=== PATIENT | male | born 1970 | race African-American/Black ===

== ENCOUNTER 2019-04-30 15:49 | Inpatient (IN) | payer OTHER ==
[2019-04-30 16:19] VITALS: BMI 34.2
--- NOTE | 2019-04-30 17:45 | HP ---
COWS - Scale Resting Pulse: 1= [place] 81-100 Sweatin= Chills/Flushing Restless Observation: 1= Difficult to Sit Still Pupil Size: 1= Pupils >than Normal Bone or Joint Aches: 2= Severe Diffuse Aches Runny Nose/ Eye Tearin= Runny Nose/Eyes GI Upset > 30mins: 2= Nausea/Diarrhea Tremor Observation: 2= Slight Tremor Visible Yawning Observation: 2= >3x During Session Anxiety or Irritability: 2=Irritable/Anxious Goose Flesh Skin: 0=Smooth Skin COWS Score: 16 CIWA Score Nausea/Vomitin Muscle Tremors: 2 Anxiety: 3 Agitation: 2 Paroxysmal Sweats: 1-Minimal Palms Moist Orientation: 0-Oriented Tacttile Disturbances: 1-Very Mild Itch/Numbness Auditory Disturbances: 0-None Visual Disturbances: 0-None Headache: 2-Mild CIWA-Ar Total Score: 13 - Admission Criteria OASAS Guidelines: Admission for Medically Managed Detox: Requires at least one of the followin. CIWA greater than 12 2. Seizures within the past 24 hours 3. Delirium tremens within the past 24 hours 4. Hallucinations within the past 24 hours 5. Acute intervention needed for co occurring medical disorder 6. Acute intervention needed for co occurring psychiatric disorder 7. Severe withdrawal that cannot be handled at a lower level of care (continued vomiting, continued diarrhea, abnormal vital signs) requiring intravenous medication and/or fluids 8. Admitting History and Physical - Admission Chief Complaint: i need help to stop using heroin and alcohol History of Present Illness: this 48 years old male with heroin,alcohol dependence,seeking detox,withdrawal symptom, seeking detox last detox 2017 no smoking for inpatient detox History Source: Patient Limitations to Obtaining History: No Limitations - Past Medical History Additional Past Medical History: hyperlipidemia - Smoking History Smoking history: Never smoked - Alcohol/Substance Use Hx Alcohol Use: Yes History of Substance Use: reports: Cocaine, Heroin - Social History Usual Living Arrangement: Yes: Other Occupation: unemployed Other Social History: this 48years old mal with heroin and alcohol dependence, withdrawal symptom,for detox,unemployed Admission ROS S - HPI Chief Complaint: for inpatine detox heroin,cocaine and alcohol Allergies/Adverse Reactions: Allergies Allergy/AdvReac Type Severity Reaction Status Date / Time No Known Allergies Allergy Verified 04/30/19 16:14 History of Present Illness: this 48 years old male with heroin,alcohol,cocaine dependence,seeking help, first time to this facility for detox last detox 2017 [facility] not completed longest sobriety for 13 years Exam Limitations: No Limitations - Ebola screening Have you traveled outside of the country in the last 21 days: No Have you had contact with anyone from an Ebola affected area: No Do you have a fever: No - Review of Systems Constitutional: Chills, Loss of Appetite, Malaise, Night Sweats, Changes in sleep, Weakness EENT: reports: Nose Congestion Respiratory: reports: No Symptoms reported Cardiac: reports: No Symptoms Reported GI: reports: Diarrhea, Nausea, Abdominal cramping : reports: No Symptoms Reported Musculoskeletal: reports: Back Pain, Joint Pain, Muscle Pain Integumentary: reports: Dryness Neuro: reports: Headache, Tremors Endocrine: reports: No Symptoms Reported Hematology: reports: No Symptoms Reported Psychiatric: reports: No Sypmtoms Reported, Judgement Intact, Mood/Affect Appropiate, Orientated x3 Patient History - Patient Medical History Hx Anemia: No Hx Asthma: No Hx Chronic Obstructive Pulmonary Disease (COPD): No Hx Cancer: No Hx Cardiac Disorders: No Hx Congestive Heart Failure: No Hx Hypertension: No Hx Hypercholesterolemia: No Hx Pacemaker: No HX Cerebrovascular Accident: No Hx Seizures: No Hx Dementia: No Hx Diabetes: No Hx Gastrointestinal Disorders: No Hx Liver Disease: No Hx Genitourinary Disorders: No Hx Sexually Transmitted Disorders: No Hx Thyroid Disease: No Hx Human Immunodeficiency Virus (HIV): No (last 04/25 negative) Hx Hepatitis C: No Hx Depression: No Hx Suicide Attempt: No Hx Bipolar Disorder: No Hx Schizophrenia: No Other Medical History: no suicidal,no homicidal - Patient Surgical History Past Surgical History: No - PPD History Previous Implant?: Yes Documented Results: Negative w/o proof Implanted On Prior [facility] Admission?: No PPD to be Administered?: Yes - Smoking Cessation Smoking history: Never smoked - Substance & Tx. 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 Age of first use: 17 Date of last use: 04/30/19 Heroin Substance route: Inhalation Frequency: Daily Amount used: 10 bags Age of first use: 17 Date of last use: 04/30/19 Cocaine Substance route: Inhalation Frequency: 1-3 times last 30 days Amount used: 10$ Age of first use: 48 Date of last use: 04/28/19 Admission Physical Exam [facility] - Vital Signs Vital Signs: Vital Signs - 24 hr 04/30/19 04/30/19 16:05 17:00 Temperature 97.5 F L 97.5 F L Pulse Rate 86 86 Respiratory 18 18 Rate Blood Pressure 141/92 141/92 - Physical General Appearance: Yes: Moderate Distress, Tremorous, Irritable, Sweating, Anxious HEENTM: Yes: IRENE, Pharynx Normal Respiratory: Yes: Lungs Clear, Normal Breath Sounds, No Respiratory Distress Neck: Yes: Within Normal Limits, Supple, Trachea in good position Breast: Yes: Within Normal Limits Cardiology: Yes: Within Normal Limits, Regular Rhythm, Regular Rate, S1, S2 Abdominal: Yes: Within Normal Limits, Normal Bowel Sounds, Non Tender, Flat, Soft Genitourinary: Yes: Within Normal Limits Back: Yes: Normal Inspection, Muscle Spasm Musculoskeletal: Yes: Back pain, Muscle Pain Extremities: Yes: Tremors Neurological: Yes: 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 NML intact, Fully Oriented, Alert, Motor Strength 5/5 Integumentary: Yes: Dry Lymphatic: Yes: Within Normal Limits - Diagnostic (1) Opioid dependence with withdrawal Current Visit: Yes Status: Acute (2) Alcohol dependence with uncomplicated withdrawal Current Visit: Yes Status: Acute (3) Uncomplicated sedative, hypnotic or anxiolytic withdrawal Current Visit: Yes Status: Acute Cleared for Admission [facility] - Detox or Rehab [facility] Level of Care: Medically Managed Detox Regimen/Protocol: Methadone/Librium Breathalyzer - Breathalyzer Breathalyzer: 0 Urine Drug Screen - Test Device Lot number: [id number] Expiration date: 12/05/20 - Control Is test valid?: Yes - Results Drug screen NEGATIVE: No Urine drug screen results: CHRISTIE-Cocaine, FEN-Fentanyl, MOP-Opiates, MTD-Methadone Inpatient Rehab Admission - Rehab Decision to Admit Inpatient rehab admission?: No
[2019-04-30] MEDS ORDERED: ACETAMINOPHEN 325 MG TABLET (FP) PO PRN ×2 (18:05)
[2019-04-30] MEDS ORDERED: MAGNESIUM HYDROX 2400MG/30ML ORAL SUSPENSION 30 ML CUP PO PRN (18:05)
[2019-04-30] MEDS ORDERED: chlordiazePOXIDE HCL 25 MG CAPSULE PO PRN (18:05)
[2019-04-30] MEDS ORDERED: MAGNESIUM CITRATE 300 ML BOTTLE PO PRN (18:05)
[2019-04-30] MEDS ORDERED: MAG HYDROX/AL HYDROX/SIMETH 30 ML UNIT-DOSE CUP PO PRN (18:05)
[2019-04-30] MEDS ORDERED: hydrOXYzine PAMOATE 25 MG CAPSULE (FP) PO PRN (18:05)
[2019-04-30] MEDS ORDERED: MENTHOL/PHENOL 1 EACH UD MM PRN (18:05)
[2019-04-30] MEDS ORDERED: IBUPROFEN 400 MG TABLET (FP) PO PRN (18:05)
[2019-04-30] MEDS ORDERED: MELATONIN 5 MG TABLETS PO PRN (18:05)
[2019-04-30] MEDS ORDERED: BISMUTH SUBSALICYLATE 524 MG/30 ML UD PO PRN (18:05)
[2019-04-30] MEDS ORDERED: METHOCARBAMOL 500 MG TABLET PO PRN (18:05)
[2019-04-30] MEDS ORDERED: METHADONE HCL 10 MG TABLET (FOR DETOX USE ONLY) PO ONE (19:00)
[2019-04-30] MEDS: cloNIDine HCL 0.1 MG TABLET PO PRN (22:55)
[2019-04-30] MEDS: chlordiazePOXIDE HCL 25 MG CAPSULE PO SCH (22:56)
[2019-04-30] MEDS: THIAMINE HCL 100 MG TABLET (FP) PO SCH (22:56)
[2019-05-01] MEDS: chlordiazePOXIDE HCL 25 MG CAPSULE PO SCH ×4 (07:32→22:50)
[2019-05-01] MEDS ORDERED: METHADONE HCL 10 MG TABLET (FOR DETOX USE ONLY) ONE (09:53)
[2019-05-01] MEDS ORDERED: METHADONE HCL 5 MG TABLET (FOR DETOX USE ONLY) ONE (09:53)
[2019-05-01] MEDS ORDERED: METHADONE (DETOX) 20 MG, METHADONE (DETOX) 5 MG PO ONE (10:00)
[2019-05-01] MEDS: PRENATAL VITAMINS W/ FOLIC ACID TABLET (FP) PO SCH (10:14)
[2019-05-01 11:02] LABS: ALBUMIN 3.9 g/dl (3.4-5.0); BILIRUBIN,TOTAL 0.2 mg/dL (0.2-1); BLOOD UREA NITROGEN 14.7 mg/dL (7-18); CALCIUM 9.1 mg/dL (8.5-10.1); POTASSIUM 4.3 mmol/L (3.5-5.1); TOT PROT 7.8 g/dl (6.4-8.2)
[2019-05-01 11:08] LABS: HEMATOCRIT 41.3 % (35.4-49); HEMOGLOBIN 13.2 GM/dL (11.7-16.9); MCH 29.1 pg (25.7-33.7); MCHC 32.1 g/dl (32.0-35.9); MEAN CELL VOLUME 90.9 fl (80-96); MEAN PLT VOLUME 9.6 fl (7.5-11.1); PLATELET COUNT 289 K/MM3 (134-434); RBC 4.54 M/mm3 (4.00-5.60); RDW 15.3 % (11.9-15.9); WHITE BLOOD COUNT 6.7 K/mm3 (4.0-10.0)
--- NOTE | 2019-05-01 11:43 | PN ---
[facility] CIWA - CIWA Score Nausea/Vomitin-No Nausea/No Vomiting Muscle Tremors: 3 Anxiety: 3 Agitation: 3 Paroxysmal Sweats: 2 Orientation: 0-Oriented Tacttile Disturbances: 0-None Auditory Disturbances: 0-None Visual Disturbances: 0-None Headache: 0-None Present CIWA-Ar Total Score: 11 S COWS - Scale Resting Pulse: 0= [place] 80 or Below Sweatin= Chills/Flushing Restless Observation: 1= Difficult to Sit Still Pupil Size: 0= Normal to Room Light Bone or Joint Aches: 1= Mild Discomfort Runny Nose/ Eye Tearin= Nasal Congestion GI Upset > 30mins: 0= None Tremor Observation of Outstretched Hands: 1= Tremor [place], Not Seen Yawning Observation: 1= 1-2x During Session Anxiety or Irritability: 1=Feels Anxious/Irritable Goose Flesh Skin: 0=Smooth Skin COWS Score: 7 [facility] Progress Note (SOAP) Subjective: sweats irritable body aches agitation interrupted sleep Objective: 05/01/19 11:31 Vital Signs Temperature 97.9 F 05/01/19 09:20 Pulse Rate 77 05/01/19 09:20 Respiratory Rate 18 05/01/19 09:20 Blood Pressure 121/66 05/01/19 09:20 O2 Sat by Pulse Oximetry (%) Laboratory Tests 05/01/19 05/01/19 07:50 07:50 WBC 6.7 RBC 4.54 Hgb 13.2 Hct 41.3 MCV 90.9 MCH 29.1 MCHC 32.1 RDW 15.3 Plt Count 289 MPV 9.6 Sodium 141 Potassium 4.3 Chloride 110 H Carbon Dioxide 27 Anion Gap 4 L BUN 14.7 Creatinine 1.0 Est GFR (CKD-EPI)AfAm 102.69 Est GFR (CKD-EPI)NonAf 88.61 Random Glucose 97 Calcium 9.1 Total Bilirubin 0.2 AST 18 ALT 27 Alkaline Phosphatase 118 H Total Protein 7.8 Albumin 3.9 aaox3 ambulating no acute distress Assessment: 05/01/19 11:32 withdrawals Plan: continue detox increase fluids
[2019-05-01 15:04] LABS: URINE APPEARANCE CLEAR; URINE BILIRUBIN NEGATIVE (NEGATIVE); URINE COLOR YELLOW; URINE GLUCOSE (UA) NEGATIVE (NEGATIVE); URINE KETONE NEGATIVE (NEGATIVE); URINE LEUK ESTERASE NEGATIVE (NEGATIVE); URINE NITRITE NEGATIVE (NEGATIVE); URINE PROTEIN NEGATIVE (NEGATIVE); URINE UROBILINOGEN 0.2 mg/dL (0.2-1.0)
[2019-05-01] MEDS: THIAMINE HCL 100 MG TABLET (FP) PO SCH (23:59)
[2019-05-02] MEDS: chlordiazePOXIDE HCL 25 MG CAPSULE PO SCH ×4 (06:45→23:29)
[2019-05-02] MEDS ORDERED: METHADONE HCL 10 MG TABLET (FOR DETOX USE ONLY) PO ONE (10:00)
[2019-05-02] MEDS: PRENATAL VITAMINS W/ FOLIC ACID TABLET (FP) PO SCH (10:48)
--- NOTE | 2019-05-02 11:30 | PN ---
[facility] CIWA - CIWA Score Nausea/Vomitin-Mild Nausea/No Vomiting Muscle Tremors: 2 Anxiety: 2 Agitation: 2 Paroxysmal Sweats: 2 Orientation: 0-Oriented Tacttile Disturbances: 0-None Auditory Disturbances: 0-None Visual Disturbances: 0-None Headache: 0-None Present CIWA-Ar Total Score: 9 [facility] COWS - Scale Resting Pulse: 0= [place] 80 or Below Sweatin= Chills/Flushing Restless Observation: 0= Sits Still Pupil Size: 0= Normal to Room Light Bone or Joint Aches: 1= Mild Discomfort Runny Nose/ Eye Tearin= None GI Upset > 30mins: 2= Nausea/Diarrhea Tremor Observation of Outstretched Hands: 1= Tremor [place], Not Seen Yawning Observation: 1= 1-2x During Session Anxiety or Irritability: 2=Irritable/Anxious Goose Flesh Skin: 0=Smooth Skin COWS Score: 8 S Progress Note (SOAP) Subjective: nausea sweats mild shakes interrupted sleep body aches Objective: 05/02/19 11:30 Vital Signs Temperature 98.1 F 05/02/19 09:16 Pulse Rate 62 05/02/19 09:16 Respiratory Rate 16 05/02/19 09:16 Blood Pressure 138/88 05/02/19 09:16 O2 Sat by Pulse Oximetry (%) Laboratory Tests 05/01/19 05/01/19 05/01/19 07:50 07:50 07:50 WBC 6.7 RBC 4.54 Hgb 13.2 Hct 41.3 MCV 90.9 MCH 29.1 MCHC 32.1 RDW 15.3 Plt Count 289 MPV 9.6 Sodium 141 Potassium 4.3 Chloride 110 H Carbon Dioxide 27 Anion Gap 4 L BUN 14.7 Creatinine 1.0 Est GFR (CKD-EPI)AfAm 102.69 Est GFR (CKD-EPI)NonAf 88.61 Random Glucose 97 Calcium 9.1 Total Bilirubin 0.2 AST 18 ALT 27 Alkaline Phosphatase 118 H Total Protein 7.8 Albumin 3.9 Urine Color Urine Appearance Urine pH Ur Specific [place] Urine Protein Urine Glucose (UA) Urine Ketones Urine Blood Urine Nitrite Urine Bilirubin Urine Urobilinogen Ur Leukocyte Esterase RPR Titer Nonreactive 05/01/19 11:35 WBC RBC Hgb Hct MCV MCH MCHC RDW Plt Count MPV Sodium Potassium Chloride Carbon Dioxide Anion Gap BUN Creatinine Est GFR (CKD-EPI)AfAm Est GFR (CKD-EPI)NonAf Random Glucose Calcium Total Bilirubin AST ALT Alkaline Phosphatase Total Protein Albumin Urine Color Yellow Urine Appearance Clear Urine pH 8.0 Ur Specific [place] 1.021 Urine Protein Negative Urine Glucose (UA) Negative Urine Ketones Negative Urine Blood Negative Urine Nitrite Negative Urine Bilirubin Negative Urine Urobilinogen 0.2 Ur Leukocyte Esterase Negative RPR Titer aaox3 ambulating no acute distress Assessment: 05/02/19 11:31 withdrawals sx Plan: continue detox
[2019-05-02] MEDS: cloNIDine HCL 0.1 MG TABLET PO PRN (16:59)
[2019-05-02] MEDS: THIAMINE HCL 100 MG TABLET (FP) PO SCH (23:29)
[2019-05-03] MEDS ORDERED: chlordiazePOXIDE HCL 10 MG CAPSULE PO PRN
[2019-05-03] MEDS ORDERED: chlordiazePOXIDE HCL 10 MG CAPSULE PO SCH (05:00)
[2019-05-03] MEDS ORDERED: METHADONE HCL 10 MG TABLET (FOR DETOX USE ONLY) ONE (08:43)
[2019-05-03] MEDS ORDERED: METHADONE HCL 5 MG TABLET (FOR DETOX USE ONLY) ONE (08:43)
[2019-05-03] MEDS ORDERED: METHADONE HCL 10 MG TABLET (FOR DETOX USE ONLY) PO ONE (10:00)
[2019-05-03] MEDS ORDERED: METHADONE (DETOX) 10 MG, METHADONE (DETOX) 5 MG PO ONE (10:00)
[2019-05-03] MEDS: chlordiazePOXIDE HCL 10 MG CAPSULE PO SCH ×2 (10:09→21:05)
[2019-05-03] MEDS: PRENATAL VITAMINS W/ FOLIC ACID TABLET (FP) PO SCH (10:10)
--- NOTE | 2019-05-03 11:23 | PN ---
S CIWA - CIWA Score Nausea/Vomitin-No Nausea/No Vomiting Muscle Tremors: 1-None Visible, but [place] Anxiety: 1-Mildly Anxious Agitation: 1-Slight > Activity Paroxysmal Sweats: 1-Minimal Palms Moist Orientation: 0-Oriented Tacttile Disturbances: 0-None Auditory Disturbances: 0-None Visual Disturbances: 0-None Headache: 0-None Present CIWA-Ar Total Score: 4 S COWS - Scale Resting Pulse: 0= [place] 80 or Below Sweatin= Chills/Flushing Restless Observation: 1= Difficult to Sit Still Pupil Size: 0= Normal to Room Light Bone or Joint Aches: 0= None Runny Nose/ Eye Tearin= Nasal Congestion GI Upset > 30mins: 0= None Tremor Observation of Outstretched Hands: 1= Tremor [place], Not Seen Yawning Observation: 0= None Anxiety or Irritability: 1=Feels Anxious/Irritable Goose Flesh Skin: 0=Smooth Skin COWS Score: 5 S Progress Note (SOAP) Subjective: sweats body aches I need my methadone lowered, I feel better. Objective: 05/03/19 11:22 Vital Signs Temperature 97.3 F L 05/03/19 09:21 Pulse Rate 66 05/03/19 09:21 Respiratory Rate 18 05/03/19 09:21 Blood Pressure 145/80 05/03/19 09:21 O2 Sat by Pulse Oximetry (%) Laboratory Tests 05/01/19 05/01/19 05/01/19 07:50 07:50 07:50 WBC 6.7 RBC 4.54 Hgb 13.2 Hct 41.3 MCV 90.9 MCH 29.1 MCHC 32.1 RDW 15.3 Plt Count 289 MPV 9.6 Sodium 141 Potassium 4.3 Chloride 110 H Carbon Dioxide 27 Anion Gap 4 L BUN 14.7 Creatinine 1.0 Est GFR (CKD-EPI)AfAm 102.69 Est GFR (CKD-EPI)NonAf 88.61 Random Glucose 97 Calcium 9.1 Total Bilirubin 0.2 AST 18 ALT 27 Alkaline Phosphatase 118 H Total Protein 7.8 Albumin 3.9 Urine Color Urine Appearance Urine pH Ur Specific [place] Urine Protein Urine Glucose (UA) Urine Ketones Urine Blood Urine Nitrite Urine Bilirubin Urine Urobilinogen Ur Leukocyte Esterase RPR Titer Nonreactive 05/01/19 11:35 WBC RBC Hgb Hct MCV MCH MCHC RDW Plt Count MPV Sodium Potassium Chloride Carbon Dioxide Anion Gap BUN Creatinine Est GFR (CKD-EPI)AfAm Est GFR (CKD-EPI)NonAf Random Glucose Calcium Total Bilirubin AST ALT Alkaline Phosphatase Total Protein Albumin Urine Color Yellow Urine Appearance Clear Urine pH 8.0 Ur Specific [place] 1.021 Urine Protein Negative Urine Glucose (UA) Negative Urine Ketones Negative Urine Blood Negative Urine Nitrite Negative Urine Bilirubin Negative Urine Urobilinogen 0.2 Ur Leukocyte Esterase Negative RPR Titer aaox3 ambulating no acute distress Assessment: 05/03/19 11:23 withdrawals Plan: continue detox increase fluids
--- NOTE | 2019-05-03 13:34 | EKG ---
Test Reason : Blood Pressure : / mmHG Vent. Rate : 070 BPM Atrial Rate : 070 BPM P-R Int : 146 ms QRS Dur : 096 ms QT Int : 398 ms P-R-T Axes : 041 030 024 degrees QTc Int : 429 ms NORMAL SINUS RHYTHM NON-SPECIFIC INTRA-VENTRICULAR CONDUCTION DELAY NO PREVIOUS ECGS AVAILABLE Confirmed by ALONSO OLEARY MD ([id number]) on 05/03/2019 1:34:16 PM Referred By: JOSE Confirmed By:ALONSO OLEARY MD
[2019-05-03] MEDS: THIAMINE HCL 100 MG TABLET (FP) PO SCH (21:05)
[2019-05-04] MEDS ORDERED: chlordiazePOXIDE HCL 10 MG CAPSULE PO ONE (05:00)
[2019-05-04] MEDS ORDERED: chlordiazePOXIDE HCL 10 MG CAPSULE PO SCH (05:00)
[2019-05-04] MEDS ORDERED: METHADONE HCL 5 MG TABLET (FOR DETOX USE ONLY) PO ONE (06:00)
[2019-05-04 06:19] VITALS: BP 127/76; PULSE 66; TEMP 97.5
[2019-05-04] MEDS ORDERED: METHADONE HCL 10 MG TABLET (FOR DETOX USE ONLY) PO ONE (10:00)
[2019-05-04] MEDS: PRENATAL VITAMINS W/ FOLIC ACID TABLET (FP) PO SCH (10:39)
--- NOTE | 2019-05-04 18:39 | DS ---
[facility] Detox Discharge Summary Admission Date: 04/30/19 Discharge Date: 05/04/19 - History Present History: Alcohol Dependence, Opioid Dependence, Sedative Dependence Additional Comments: PATIENT GOING TO [facility] ([place], [place] ) FOR AFTERCARE. PATIENT WAS DISCHARGED FROM DETOX UNIT IN STABLE MEDICAL CONDITION. - Physical Exam Results Vital Signs: Vital Signs Temperature 97.5 F L 05/04/19 06:18 Pulse Rate 66 05/04/19 06:18 Respiratory Rate 20 05/04/19 06:18 Blood Pressure 127/76 05/04/19 06:18 O2 Sat by Pulse Oximetry (%) Pertinent Admission Physical Exam Findings: WITHDRAWAL SYMPTOMS. Laboratory Tests 05/01/19 05/01/19 05/01/19 07:50 07:50 07:50 WBC 6.7 RBC 4.54 Hgb 13.2 Hct 41.3 MCV 90.9 MCH 29.1 MCHC 32.1 RDW 15.3 Plt Count 289 MPV 9.6 Sodium 141 Potassium 4.3 Chloride 110 H Carbon Dioxide 27 Anion Gap 4 L BUN 14.7 Creatinine 1.0 Est GFR (CKD-EPI)AfAm 102.69 Est GFR (CKD-EPI)NonAf 88.61 Random Glucose 97 Calcium 9.1 Total Bilirubin 0.2 AST 18 ALT 27 Alkaline Phosphatase 118 H Total Protein 7.8 Albumin 3.9 Urine Color Urine Appearance Urine pH Ur Specific [place] Urine Protein Urine Glucose (UA) Urine Ketones Urine Blood Urine Nitrite Urine Bilirubin Urine Urobilinogen Ur Leukocyte Esterase RPR Titer Nonreactive 05/01/19 11:35 WBC RBC Hgb Hct MCV MCH MCHC RDW Plt Count MPV Sodium Potassium Chloride Carbon Dioxide Anion Gap BUN Creatinine Est GFR (CKD-EPI)AfAm Est GFR (CKD-EPI)NonAf Random Glucose Calcium Total Bilirubin AST ALT Alkaline Phosphatase Total Protein Albumin Urine Color Yellow Urine Appearance Clear Urine pH 8.0 Ur Specific [place] 1.021 Urine Protein Negative Urine Glucose (UA) Negative Urine Ketones Negative Urine Blood Negative Urine Nitrite Negative Urine Bilirubin Negative Urine Urobilinogen 0.2 Ur Leukocyte Esterase Negative RPR Titer LABS NOTED. - Treatment Hospital Course: Detox Protocol Followed, Detoxed Safely, Responded well, Discharged Condition Good Patient has Accepted a Rehab Referral to: PT. REFERRED TO [facility] ([place], [place]) - Medication Discharge Medications: Ambulatory Orders NK [No Known Home Medication] 04/30/19 - Diagnosis (1) Alcohol dependence with uncomplicated withdrawal Status: Acute (2) Opioid dependence with withdrawal Status: Acute (3) Uncomplicated sedative, hypnotic or anxiolytic withdrawal Status: Acute - AMA Did Patient Leave Against Medical Advice: No
[2019-05-05] MEDS ORDERED: chlordiazePOXIDE HCL 10 MG CAPSULE PO ONE (05:00)
[2019-05-05] MEDS ORDERED: METHADONE HCL 5 MG TABLET (FOR DETOX USE ONLY) PO ONE (06:00)
== END 2019-05-04 09:25 | disposition home or self-care (01) | DRG 773 ==
LOC: YASAS 15:49 → Y6N 18:28
PROVIDERS: ADMIT Allergy & Immunology; ATTEND Allergy & Immunology
PROC: HZ2ZZZZ Detoxification Services for Substance Abuse Treatment (ICD-10-PCS; principal; 2019-04-30)
DX: F11.23 Opioid dependence with withdrawal (principal); F10.230 Alcohol dependence with withdrawal, uncomplicated; F13.230 Sedative, hypnotic or anxiolytic dependence with withdrawal, uncomplicated
CPT/HCPCS: 36415; 80053; 81003; 85027; 86593; 93005; 93010; J0735

== ENCOUNTER 2019-05-31 16:15 | Inpatient (IN) | payer OTHER ==
[2019-05-31 17:03] VITALS: BMI 34.2
--- NOTE | 2019-05-31 20:09 | HP ---
COWS - Scale Resting Pulse: 1= CO 81-100 Sweatin=Flushed/Facial Moisture Restless Observation: 3= Extraneous Movement Pupil Size: 2= Moderately Dilated (Pupils = 4 mm) Bone or Joint Aches: 0= None Runny Nose/ Eye Tearin= Nasal Congestion GI Upset > 30mins: 1= Stomach Cramp Tremor Observation: 2= Slight Tremor Visible Yawning Observation: 0= None Anxiety or Irritability: 1=Feels Anxious/Irritable Goose Flesh Skin: 0=Smooth Skin COWS Score: 13 CIWA Score Nausea/Vomitin-No Nausea/No Vomiting Muscle Tremors: 3 Anxiety: 1-Mildly Anxious Agitation: 1-Slight > Activity Paroxysmal Sweats: 3 (Increased facial moisture) Orientation: 0-Oriented Tacttile Disturbances: 0-None Auditory Disturbances: 0-None Visual Disturbances: 0-None Headache: 0-None Present CIWA-Ar Total Score: 8 - Admission Criteria [facility]ASAS Guidelines: Admission for Medically Managed Detox: Requires at least one of the followin. CIWA greater than 12 2. Seizures within the past 24 hours 3. Delirium tremens within the past 24 hours 4. Hallucinations within the past 24 hours 5. Acute intervention needed for co occurring medical disorder 6. Acute intervention needed for co occurring psychiatric disorder 7. Severe withdrawal that cannot be handled at a lower level of care (continued vomiting, continued diarrhea, abnormal vital signs) requiring intravenous medication and/or fluids 8. Patient presents the following: None of the above Admission Criteria Met: Admission criteria not met Admitting History and Physical - Smoking History Smoking history: Never smoked Have you smoked in the past 12 months: No - Alcohol/Substance Use Hx Alcohol Use: Yes History of Substance Use: reports: Cocaine, Heroin - Social History Occupation: unemployed Admission [facility] Chief Complaint: " Here to get clean and change my life" Allergies/Adverse Reactions: Allergies Allergy/AdvReac Type Severity Reaction Status Date / Time No Known Allergies Allergy Verified 05/31/19 17:06 History of Present Illness: 48 yo presents w/ opioid withdrawal seeking detox. States was trying to stop on own by taking methadone. Last took methadone 2 days ago. PAMELLA: 0.009 UTox: + FEN/MTD/BZO Last [facility] detox 04/30/19. States relapsed 2 days after discharge. Denies seizures or overdoses. Alcohol use began at age 17. (Dibbing and dabbing) Consistent use at age 44. Currently drinks 6- 12 oz beers/day x 3 years. Last drink 1 -16 oz beer @ 3 pm today. Heroin use began at age 44. Currently using 6 bags/day. Nasal. Has a Narcan kit at home. Methadone use began 2 days ago - was trying to detox self. Thinks it was 30 mg. Nicotine - quit 1 month ago. Denies benzo use. PMHx: Denies Last EK04/30/19 MHHx: Denies depression. Denies thoughts of harming self or others SHx: Domiciled. Self-employed. Denies legal issues. Search Terms: Cruzito Summersley, 1970 Search Date: 05/31/2019 08:06:58 PM The Drug Utilization Report below displays all of the controlled substance prescriptions, if any, that your patient has filled in the last twelve months. The information displayed on this report is compiled from pharmacy submissions to the Department, and accurately reflects the information as submitted by the pharmacies. This report was requested by: Zenia Palmer | Reference #: [id number] There are no results for the search terms that you entered. Exam Limitations: No Limitations - Ebola screening Have you traveled outside of the country in the last 21 days: No (N) Have you had contact with anyone from an Ebola affected area: No Have you been sick,other than usual withdrawal symptoms: No Do you have a fever: No - Review of Systems Constitutional: No Symptoms Reported EENT: reports: No Symptoms Reported Respiratory: reports: No Symptoms reported Cardiac: reports: No Symptoms Reported GI: reports: Indigestion (Acid reflux - takes mylanta), Abdominal cramping Musculoskeletal: reports: No Symptoms Reported Integumentary: reports: No Symptoms Reported Neuro: reports: Tremors Endocrine: reports: No Symptoms Reported Hematology: reports: No Symptoms Reported Psychiatric: reports: Judgement Intact, Mood/Affect Appropiate, Orientated x3, Anxious Patient History - Patient Medical History Hx Anemia: No Hx Asthma: No Hx Chronic Obstructive Pulmonary Disease (COPD): No Hx Cancer: No Hx Cardiac Disorders: No Hx Congestive Heart Failure: No Hx Hypertension: No Hx Hypercholesterolemia: No Hx Pacemaker: No HX Cerebrovascular Accident: No Hx Seizures: No Hx Dementia: No Hx Diabetes: No Hx Gastrointestinal Disorders: No Hx Liver Disease: No Hx Genitourinary Disorders: No Hx Sexually Transmitted Disorders: No Hx Renal Disease (ESRD): No Hx Thyroid Disease: No Hx Human Immunodeficiency Virus (HIV): No (last 04/25 negative) Hx Hepatitis C: No Hx Depression: No Hx Suicide Attempt: No Hx Bipolar Disorder: No Hx Schizophrenia: No - Patient Surgical History Past Surgical History: No Hx Neurologic Surgery: No Hx Cataract Extraction: No Hx Cardiac Surgery: No Hx Lung Surgery: No Hx Breast Surgery: No Hx Breast Biopsy: No Hx Abdominal Surgery: No Hx Appendectomy: No Hx Cholecystectomy: No Hx Genitourinary Surgery: No Hx Section: No Hx Orthopedic Surgery: No Anesthesia Reaction: No - PPD History Previous Implant?: Yes Documented Results: Negative w/proof Implanted On Prior [facility] Admission?: Yes Date: 05/02/19 PPD to be Administered?: No - Smoking Cessation Smoking history: Former smoker (Stopped: 04/30/2019) Have you smoked in the past 12 months: Yes Hx Chewing Tobacco Use: No Initiated information on smoking cessation: Yes 'Breaking Loose' booklet given: 05/31/19 - Substance & Tx. History Hx Alcohol Use: Yes Hx Substance Use: Yes Substance Use Type: Alcohol, Heroin Hx Substance Use Treatment: Yes (detox) - Substances abused Alcohol Substance route: Oral Frequency: Daily Amount used: 1 liter of vodka Age of first use: 17 Date of last use: 05/31/19 Heroin Substance route: Inhalation Frequency: Daily Amount used: 5bags Age of first use: 44 Date of last use: 05/31/19 Admission Physical Exam BHS - Vital Signs Vital Signs: Vital Signs - 24 hr 05/31/19 16:55 Temperature 97.9 F Pulse Rate 83 Respiratory 16 Rate Blood Pressure 155/95 - Physical General Appearance: Yes: Mild Distress, Obese, Tremorous (Mild tremors), Anxious HEENTM: Yes: EOMI, Hearing grossly Normal, Normocephalic, Normal Voice, IRENE ( Pupils = 4 mm), Nasal Congestion, Other (Thickened saliva) Respiratory: Yes: Lungs Clear (Pulse Ox = 98 &), Normal Breath Sounds, No Respiratory Distress Neck: Yes: No masses,lesions,Nodules, Supple Cardiology: Yes: Regular Rhythm, Regular Rate, S1, S2 Abdominal: Yes: Normal Bowel Sounds, Non Tender, Soft, Protuberent (Increased abdominal adiposity) Genitourinary: Yes: Within Normal Limits Back: Yes: Normal Inspection Musculoskeletal: Yes: full range of Motion, Gait Steady Extremities: Yes: Normal Capillary Refill, Normal Range of Motion, Tremors (Mild ) Neurological: Yes: 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 NML intact, Fully Oriented, Alert, Motor Strength 5/5, Normal Mood/Affect, Normal Response Integumentary: Yes: Normal Color, Warm, Moist (Increased facial mositure.), Other (Decreased skin turgor) - Diagnostic (1) Dehydration Current Visit: Yes Status: Acute (2) Obesity (BMI 30.0-34.9) Current Visit: Yes Status: Chronic (3) Opioid dependence with withdrawal Current Visit: Yes Status: Acute (4) Alcohol dependence, uncomplicated Current Visit: Yes Status: Chronic Cleared for Admission [facility] - Detox or Rehab [facility] Level of Care: Medically Managed Detox Regimen/Protocol: Methadone Claeared for Rehab Admission: No Breathalyzer - Breathalyzer Breathalyzer: 0.009 Urine Drug Screen - Test Device Lot number: [id number] Expiration date: 12/05/20 - Control Is test valid?: Yes - Results Drug screen NEGATIVE: No Urine drug screen results: FEN-Fentanyl, MTD-Methadone, BZO-Benzodiazepines Inpatient Rehab Admission - Rehab Decision to Admit Inpatient rehab admission?: No
[2019-05-31] MEDS ORDERED: ACETAMINOPHEN 325 MG TABLET (FP) PO PRN ×2 (20:38)
[2019-05-31] MEDS ORDERED: MENTHOL/PHENOL 1 EACH UD MM PRN (20:38)
[2019-05-31] MEDS ORDERED: MAGNESIUM HYDROX 2400MG/30ML ORAL SUSPENSION 30 ML CUP PO PRN (20:38)
[2019-05-31] MEDS ORDERED: IBUPROFEN 400 MG TABLET (FP) PO PRN (20:38)
[2019-05-31] MEDS ORDERED: BISMUTH SUBSALICYLATE 524 MG/30 ML UD PO PRN (20:38)
[2019-05-31] MEDS ORDERED: cloNIDine HCL 0.1 MG TABLET PO PRN (20:38)
[2019-05-31] MEDS ORDERED: MAGNESIUM CITRATE 300 ML BOTTLE PO PRN (20:38)
[2019-05-31] MEDS ORDERED: NICOTINE POLACRILEX 2 MG GUM BUC PRN (20:38)
[2019-05-31] MEDS ORDERED: MAG HYDROX/AL HYDROX/SIMETH 30 ML UNIT-DOSE CUP PO PRN (20:38)
[2019-05-31] MEDS ORDERED: MELATONIN 5 MG TABLETS PO PRN (20:38)
[2019-05-31] MEDS ORDERED: METHADONE HCL 10 MG TABLET (FOR DETOX USE ONLY) PO ONE (20:38)
[2019-05-31] MEDS ORDERED: METHOCARBAMOL 500 MG TABLET PO PRN (20:38)
[2019-05-31] MEDS: THIAMINE HCL 100 MG TABLET (FP) PO SCH (21:31)
[2019-06-01] MEDS ORDERED: METHADONE HCL 10 MG TABLET (FOR DETOX USE ONLY) PO ONE (10:00)
[2019-06-01] MEDS: PRENATAL VITAMINS W/ FOLIC ACID TABLET (FP) PO SCH (10:50)
[2019-06-01] MEDS: clonazePAM 0.5 MG TABLET PO PRN ×3 (10:51→22:33)
--- NOTE | 2019-06-01 11:14 | PN ---
S CIWA - CIWA Score Nausea/Vomitin-No Nausea/No Vomiting BHS COWS - Scale Resting Pulse: 0= MO 80 or Below Sweatin= Beads of Sweat on Face Restless Observation: 1= Difficult to Sit Still Pupil Size: 0= Normal to Room Light Bone or Joint Aches: 2= Severe Diffuse Aches Runny Nose/ Eye Tearin= None GI Upset > 30mins: 0= None Tremor Observation of Outstretched Hands: 2= Slight Tremor Visible Yawning Observation: 1= 1-2x During Session Anxiety or Irritability: 2=Irritable/Anxious Goose Flesh Skin: 0=Smooth Skin COWS Score: 11 S Progress Note (SOAP) Subjective: c/o muscle aches, anxiety, irritability, sweats, and shakes. Objective: 06/01/19 11:14 Vital Signs 06/01/19 06/01/19 06/01/19 03:30 06:22 09:09 Temperature 97.1 F L 97.3 F L Pulse Rate 54 L 67 Respiratory 18 18 16 Rate Blood Pressure 122/76 136/90 Labs pending. Assessment: 06/01/19 11:15 AOX3, in no acute respiratory distress. Full ROM, ambulating in the unit. Withdrawal symptoms. Plan: continue detox.
[2019-06-01 18:22] LABS: HEMATOCRIT 40.3 % (35.4-49); HEMOGLOBIN 12.9 GM/dL (11.7-16.9); MEAN CELL VOLUME 90.7 fl (80-96); MEAN PLT VOLUME 9.5 fl (7.5-11.1); PLATELET COUNT 222 K/MM3 (134-434); RBC 4.44 M/mm3 (4.00-5.60); RDW 14.8 % (11.9-15.9)
[2019-06-01 18:44] LABS: ALBUMIN 3.3 g/dl (3.4-5.0); BILIRUBIN,TOTAL 0.4 mg/dL (0.2-1); BLOOD UREA NITROGEN 13.6 mg/dL (7-18); CALCIUM 8.9 mg/dL (8.5-10.1); POTASSIUM 3.8 mmol/L (3.5-5.1); TOT PROT 6.9 g/dl (6.4-8.2)
[2019-06-01 22:24] LABS: URINE APPEARANCE Clear; URINE BILIRUBIN Negative (NEGATIVE); URINE COLOR Yellow; URINE GLUCOSE (UA) Negative (NEGATIVE); URINE KETONE Negative (NEGATIVE); URINE LEUK ESTERASE Negative (NEGATIVE); URINE NITRITE Negative (NEGATIVE); URINE PROTEIN Negative (NEGATIVE); URINE UROBILINOGEN 0.2 mg/dL (0.2-1.0)
[2019-06-01] MEDS: THIAMINE HCL 100 MG TABLET (FP) PO SCH (22:31)
[2019-06-02 09:55] VITALS: BP 133/88; PULSE 56; TEMP 98.7
[2019-06-02] MEDS ORDERED: METHADONE HCL 5 MG TABLET (FOR DETOX USE ONLY) PO ONE (10:00)
[2019-06-02] MEDS: PRENATAL VITAMINS W/ FOLIC ACID TABLET (FP) PO SCH (10:08)
[2019-06-02] MEDS: clonazePAM 0.5 MG TABLET PO PRN (10:11)
--- NOTE | 2019-06-02 10:43 | PN ---
S CIWA - CIWA Score Nausea/Vomitin-Mild Nausea/No Vomiting Muscle Tremors: 3 Anxiety: 2 Agitation: 1-Slight > Activity Paroxysmal Sweats: 2 Orientation: 0-Oriented Tacttile Disturbances: 1-Very Mild Itch/Numbness Auditory Disturbances: 0-None Visual Disturbances: 1-Very Mild Sensitivity Headache: 1-Very Mild CIWA-Ar Total Score: 12 BHS COWS - Scale Resting Pulse: 0= MD 80 or Below Sweatin= Chills/Flushing Restless Observation: 0= Sits Still Pupil Size: 1= Pupils >than Normal Bone or Joint Aches: 1= Mild Discomfort Runny Nose/ Eye Tearin= Nasal Congestion GI Upset > 30mins: 1= Stomach Cramp Tremor Observation of Outstretched Hands: 1= Tremor [place], Not Seen Yawning Observation: 1= 1-2x During Session Anxiety or Irritability: 1=Feels Anxious/Irritable Goose Flesh Skin: 0=Smooth Skin COWS Score: 8 BHS Progress Note (SOAP) Subjective: 48 years old male admitted on 05/31/19 for alcohol and opiate withdrawal sx management treating with klonopin prn and methadone detox regiments reports tremor anxiety restlessness sweating from alcohol withdrawal that he was drinking 1 pint of volda daily x 7-10 day "straight" ciwa 12 discontinue klonopin begin librium detox regimen Objective: 06/02/19 10:56 Vital Signs Temperature 98.7 F 06/02/19 09:55 Pulse Rate 56 L 06/02/19 09:55 Respiratory Rate 18 06/02/19 09:55 Blood Pressure 133/88 06/02/19 09:55 O2 Sat by Pulse Oximetry (%) Laboratory Last Values WBC 7.0 K/mm3 (4.0-10.0) 06/01/19 10:10 RBC 4.44 M/mm3 (4.00-5.60) 06/01/19 10:10 Hgb 12.9 GM/dL (11.7-16.9) 06/01/19 10:10 Hct 40.3 % (35.4-49) 06/01/19 10:10 MCV 90.7 fl (80-96) 06/01/19 10:10 MCH 29.0 pg (25.7-33.7) 06/01/19 10:10 MCHC 32.0 g/dl (32.0-35.9) 06/01/19 10:10 RDW 14.8 % (11.9-15.9) 06/01/19 10:10 Plt Count 222 K/MM3 (134-434) D 06/01/19 10:10 MPV 9.5 fl (7.5-11.1) 06/01/19 10:10 Sodium 142 mmol/L (136-145) 06/01/19 10:10 Potassium 3.8 mmol/L (3.5-5.1) 06/01/19 10:10 Chloride 111 mmol/L (98-107) H 06/01/19 10:10 Carbon Dioxide 28 mmol/L (21-32) 06/01/19 10:10 Anion Gap 3 MMOL/L (8-16) L 06/01/19 10:10 BUN 13.6 mg/dL (7-18) 06/01/19 10:10 Creatinine 1.0 mg/dL (0.55-1.3) 06/01/19 10:10 Est GFR (CKD-EPI)AfAm 102.69 06/01/19 10:10 Est GFR (CKD-EPI)NonAf 88.61 06/01/19 10:10 Random Glucose 120 mg/dL (74-106) H 06/01/19 10:10 Calcium 8.9 mg/dL (8.5-10.1) 06/01/19 10:10 Total Bilirubin 0.4 mg/dL (0.2-1) 06/01/19 10:10 AST 25 U/L (15-37) 06/01/19 10:10 ALT 56 U/L (13-61) 06/01/19 10:10 Alkaline Phosphatase 105 U/L (45-117) 06/01/19 10:10 Total Protein 6.9 g/dl (6.4-8.2) 06/01/19 10:10 Albumin 3.3 g/dl (3.4-5.0) L 06/01/19 10:10 Urine Color Yellow 06/01/19 21:40 Urine Appearance Clear 06/01/19 21:40 Urine pH 6.0 (5.0-8.0) D 06/01/19 21:40 Ur Specific [place] 1.020 (1.010-1.035) 06/01/19 21:40 Urine Protein Negative (NEGATIVE) 06/01/19 21:40 Urine Glucose (UA) Negative (NEGATIVE) 06/01/19 21:40 Urine Ketones Negative (NEGATIVE) 06/01/19 21:40 Urine Blood Negative (NEGATIVE) 06/01/19 21:40 Urine Nitrite Negative (NEGATIVE) 06/01/19 21:40 Urine Bilirubin Negative (NEGATIVE) 06/01/19 21:40 Urine Urobilinogen 0.2 mg/dL (0.2-1.0) 06/01/19 21:40 Ur Leukocyte Esterase Negative (NEGATIVE) 06/01/19 21:40 lab oted Assessment: 06/02/19 10:56 alcohol and opiate withdrawal Plan: librium and methadone regimen
[2019-06-02] MEDS ORDERED: chlordiazePOXIDE HCL 10 MG CAPSULE PO PRN (10:50)
[2019-06-02] MEDS ORDERED: chlordiazePOXIDE HCL 10 MG CAPSULE PO SCH (11:00)
--- NOTE | 2019-06-02 14:44 | DS ---
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 offer 5 mg methadone in addition to 15 mg of methadone patient refuses that demands to receive 30 mg of methadone discussed medication assisted treatment program that methadone dosage titrates up to maintenance dosage patient unfavor methadone program Pertinent Past History: patient insists to leave the detox unit case discussed with the nurse against medical advice is appropriated - Physical Exam Results Vital Signs: Vital Signs Temperature 98.7 F 06/02/19 09:55 Pulse Rate 56 L 06/02/19 09:55 Respiratory Rate 18 06/02/19 09:55 Blood Pressure 133/88 06/02/19 09:55 O2 Sat by Pulse Oximetry (%) Pertinent Admission Physical Exam Findings: alcohol and opiate withdrawal Laboratory Last Values WBC 7.0 K/mm3 (4.0-10.0) 06/01/19 10:10 RBC 4.44 M/mm3 (4.00-5.60) 06/01/19 10:10 Hgb 12.9 GM/dL (11.7-16.9) 06/01/19 10:10 Hct 40.3 % (35.4-49) 06/01/19 10:10 MCV 90.7 fl (80-96) 06/01/19 10:10 MCH 29.0 pg (25.7-33.7) 06/01/19 10:10 MCHC 32.0 g/dl (32.0-35.9) 06/01/19 10:10 RDW 14.8 % (11.9-15.9) 06/01/19 10:10 Plt Count 222 K/MM3 (134-434) D 06/01/19 10:10 MPV 9.5 fl (7.5-11.1) 06/01/19 10:10 Sodium 142 mmol/L (136-145) 06/01/19 10:10 Potassium 3.8 mmol/L (3.5-5.1) 06/01/19 10:10 Chloride 111 mmol/L (98-107) H 06/01/19 10:10 Carbon Dioxide 28 mmol/L (21-32) 06/01/19 10:10 Anion Gap 3 MMOL/L (8-16) L 06/01/19 10:10 BUN 13.6 mg/dL (7-18) 06/01/19 10:10 Creatinine 1.0 mg/dL (0.55-1.3) 06/01/19 10:10 Est GFR (CKD-EPI)AfAm 102.69 06/01/19 10:10 Est GFR (CKD-EPI)NonAf 88.61 06/01/19 10:10 Random Glucose 120 mg/dL (74-106) H 06/01/19 10:10 Calcium 8.9 mg/dL (8.5-10.1) 06/01/19 10:10 Total Bilirubin 0.4 mg/dL (0.2-1) 06/01/19 10:10 AST 25 U/L (15-37) 06/01/19 10:10 ALT 56 U/L (13-61) 06/01/19 10:10 Alkaline Phosphatase 105 U/L (45-117) 06/01/19 10:10 Total Protein 6.9 g/dl (6.4-8.2) 06/01/19 10:10 Albumin 3.3 g/dl (3.4-5.0) L 06/01/19 10:10 Urine Color Yellow 06/01/19 21:40 Urine Appearance Clear 06/01/19 21:40 Urine pH 6.0 (5.0-8.0) D 06/01/19 21:40 Ur Specific [place] 1.020 (1.010-1.035) 06/01/19 21:40 Urine Protein Negative (NEGATIVE) 06/01/19 21:40 Urine Glucose (UA) Negative (NEGATIVE) 06/01/19 21:40 Urine Ketones Negative (NEGATIVE) 06/01/19 21:40 Urine Blood Negative (NEGATIVE) 06/01/19 21:40 Urine Nitrite Negative (NEGATIVE) 06/01/19 21:40 Urine Bilirubin Negative (NEGATIVE) 06/01/19 21:40 Urine Urobilinogen 0.2 mg/dL (0.2-1.0) 06/01/19 21:40 Ur Leukocyte Esterase Negative (NEGATIVE) 06/01/19 21:40 RPR Titer Nonreactive (NONREACTIVE) 06/01/19 10:10 lab noted - Treatment Hospital Course: Detox Protocol Followed Patient has Accepted [facility] - Medication Discharge Medications: Ambulatory Orders NK [No Known Home Medication] 04/30/19 - Diagnosis (1) Alcohol dependence with uncomplicated withdrawal Status: Acute (2) Opioid dependence with withdrawal Status: Acute (3) Obesity (BMI 30.0-34.9) Status: Chronic - AMA Did Patient Leave Against Medical Advice: Yes
[2019-06-03] MEDS ORDERED: chlordiazePOXIDE HCL 10 MG CAPSULE PO SCH (05:00)
[2019-06-03] MEDS ORDERED: METHADONE HCL 10 MG TABLET (FOR DETOX USE ONLY) PO ONE (10:00)
[2019-06-04] MEDS ORDERED: chlordiazePOXIDE HCL 10 MG CAPSULE PO PRN (00:01)
[2019-06-04] MEDS ORDERED: chlordiazePOXIDE HCL 10 MG CAPSULE PO SCH ×2 (05:00)
[2019-06-04] MEDS ORDERED: METHADONE HCL 10 MG TABLET (FOR DETOX USE ONLY) PO ONE (10:00)
[2019-06-05] MEDS ORDERED: chlordiazePOXIDE HCL 10 MG CAPSULE PO ONE (05:00)
[2019-06-05] MEDS ORDERED: METHADONE HCL 5 MG TABLET (FOR DETOX USE ONLY) PO ONE (06:00)
[2019-06-06] MEDS ORDERED: METHADONE HCL 5 MG TABLET (FOR DETOX USE ONLY) PO ONE (06:00)
== END 2019-06-02 12:52 | disposition left against medical advice (07) | DRG 770 ==
LOC: YASAS 16:15 → Y3N 20:56
PROVIDERS: ADMIT Allergy & Immunology; ATTEND Allergy & Immunology
PROC: HZ2ZZZZ Detoxification Services for Substance Abuse Treatment (ICD-10-PCS; principal; 2019-05-31)
DX: F11.23 Opioid dependence with withdrawal (principal); F10.230 Alcohol dependence with withdrawal, uncomplicated; E86.0 Dehydration; E66.9 Obesity, unspecified; Z68.34 Body mass index [BMI] 34.0-34.9, adult; Z87.891 Personal history of nicotine dependence
CPT/HCPCS: 36415; 80053; 81003; 85027; 86593; J0735